=== PATIENT | female | born 1950 | race Caucasian/White ===

== ENCOUNTER 2017-10-07 12:30 | Observation (INO) | payer OTHER, MEDICAID ==
[2017-10-07] VITALS (11 sets, daily range): BP systolic 125–194; BP diastolic 57–86; PULSE 91–99; RESP 16–22; TEMP 97.4–97.9; O2SAT 96–100
[~2017-10-07] VITALS: Ht 149.9 cm; Wt 90.2 kg
[~2017-10-07 12:30] MED LIST: ARIP1TAB12; ATOR40TA49 PO; COLE625 PO; EFFE150C PO; LAMI200T PO; LISI-363 PO; LOPE2 PO; LOPE2TAB3 PO; METF500 PO; PROT40TA PO; TRIA.1%T TOP
[2017-10-07] MEDS ORDERED: SODIUM CHLOR 0.9% 1000 ML INJ 1,000 ML IV ONE (12:33)
[2017-10-07 12:59] LABS: AUTOMATED NEUTROPHIL # 5.6 TH/MM3 (1.8-7.7); BASOPHIL % 0.4 % (0.0-2.0); EOSINOPHIL # 0.2 TH/MM3 (0-0.4); EOSINOPHIL % 3.1 % (0.0-4.0); HEMATOCRIT 34.9 % (35.0-46.0); HEMOGLOBIN 11.6 GM/DL (11.6-15.3); LYMPH % 12.4 % (9.0-44.0); LYMPHOCYTE # 0.9 TH/MM3 (1.0-4.8); MEAN CORPUSCULAR HEMOGLOBIN 29.4 PG (27.0-34.0); MEAN CORPUSCULAR HGB CONC 33.3 % (32.0-36.0); MEAN PLATELET VOLUME 7.4 FL (7.0-11.0); MONO % 6.4 % (0.0-8.0); MONOCYTE # 0.5 TH/MM3 (0-0.9); NEUT % 77.7 % (16.0-70.0); PLATELET COUNT 316 TH/MM3 (150-450); RED BLOOD COUNT 3.97 MIL/MM3 (4.00-5.30); WHITE BLOOD COUNT 7.2 TH/MM3 (4.0-11.0)
--- NOTE | 2017-10-07 12:59 | RADRPT ---
EXAM DATE: 10/07/2017 12:43 PM EDT AGE/SEX: 67 years / Female INDICATIONS: Stroke alert. Cephalgia. Resolved slurred speech and right upper extremity weakness. CLINICAL DATA: This is the patient's initial encounter. Patient reports that signs and symptoms have been present for 1 day and indicates a pain score of 0/10. MEDICAL/SURGICAL HISTORY: Non-responsive. Non-responsive. RADIATION DOSE: 61.45 CTDI (mGy) [place] [facility] [place]. . Report was called by [ Dr. Gomez to Dr. Sommer at 12:56 PM] TECHNIQUE: CT of the head without contrast. Using automated exposure control and adjustment of the mA and/or kV according to patient size, radiation dose was kept as low as reasonably achievable to ob tain optimal diagnostic quality images. FINDINGS: Cerebrum: The ventricles are normal for age. No evidence of midline shift, mass lesion, hemorrhage or acute infarction. No extraaxial fluid collections are seen. Posterior Fossa: The cerebellum and brainstem are intact. The 4th ventricle is midline. The cerebe llopontine angle is unremarkable. Extracranial: The visualized portion of the orbits is intact. Skull: The calvaria is intact. No evidence of skull fracture. CONCLUSION: 1. Unremarkable and stable CT scan of the brain compared to 2016. 2. No focal or acute intracranial hemorrhage. Electronically signed by: Heonk Gomez MD 10/07/2017 12:58 PM EDT
[2017-10-07] MEDS ORDERED: METOCLOPRAMIDE HCL 10 MG/2 ML VIAL IV PUSH ONE ×2 (13:00→16:30)
--- NOTE | 2017-10-07 13:02 | PD ---
[facility] Chief Complaint: Headache Time Seen by Provider: 12:33 Travel History International Travel<30 days: No Contact w/Intl Traveler<30days: No Traveled to known affect area: No History of Present Illness HPI Patient is a 67-year-old female who has history of hypertension, presents the emergency room for evaluation of possible CVA. As per EMS, patient was at the [facility] today, reports that all of a sudden, she had epigastric pain and felt nauseous. Reports that she became diaphoretic and then began to develop a headache. When EMS arrived on scene, patient was unable to provide in [facility], reports concerns that she may have been slurring her speech and had left -sided weakness. Upon presentation to the emergency room, patient complains of a headache with abdominal pain. Patient is alert and oriented 3, she does not have any speech deficits, she has no weakness, she has no neurological abnormalities. Patient is extremely anxious at this time, she is upset as she is having epigastric pain with nausea. Patient reports that she feels "sick to my stomach." Patient denies having any chest pain or shortness of breath at this time. PFSH Past Medical History Bipolar Disorder: Yes Cardiovascular Problems: Yes (HTN) Diabetes: Yes Diminished Hearing: No Psychiatric: Yes (bipolar) ?: Not Past Surgical History Narrative Surgical Patient cannot remember if she has had any surgeries in the past. Social History Alcohol Use: No Tobacco Use: No Substance Use: No Allergies-Medications (Allergen,Severity, Reaction): Coded Allergies: moexipril (Unverified Allergy, Unknown, 10/07/17) Reported Meds & Prescriptions Reported Meds & Active Scripts Active Reported Aricept (Donepezil) 23 Mg Tab 23 Mg PO HS Do not split, crushed or chewed. Effexor XR 24 HR (Venlafaxine HCl) 150 Mg Cap 300 Mg PO DAILY Loperamide (Loperamide HCl) 2 Mg Cap 2 Mg PO DIRECTED PRN One capsule after each loose stool. Not to exceed 8 capsules per day. Lisinopril 20 Mg Tab 20 Mg PO DAILY Lamictal (Lamotrigine) 200 Mg Tab 200 Mg PO BID Atorvastatin (Atorvastatin Calcium) 40 Mg Tab 40 Mg PO HS Abilify (Aripiprazole) 10 Mg Tab 10 Mg PO DAILY Review of Systems General / Constitutional: No: Fever Eyes: No: Visual changes HENT: Positive: Headaches Cardiovascular: No: Chest Pain or Discomfort Respiratory: No: Shortness of Breath Gastrointestinal: Positive: Nausea, Vomiting, Abdominal Pain, No: Diarrhea, Constipation Genitourinary: No: Dysuria Musculoskeletal: No: Pain Skin: No Rash Neurologic: No: Weakness Psychiatric: No: Depression Endocrine: No: Polydipsia Hematologic/Lymphatic: No: Easy Bruising Physical Exam Narrative GENERAL: Moderate distress SKIN: Focused skin assessment warm/dry. HEAD: Atraumatic. Normocephalic. EYES: Pupils equal and round. No scleral icterus. No injection or drainage. ENT: No nasal bleeding or discharge. Mucous membranes pink and moist. NECK: Trachea midline. No JVD. CARDIOVASCULAR: Regular rate and rhythm. No murmur appreciated. RESPIRATORY: No accessory muscle use. Clear to auscultation. Breath sounds equal bilaterally. GASTROINTESTINAL: Abdomen soft, patient with tenderness in the epigastrium, no rebound or guarding on exam, nondistended. Hepatic and splenic margins not palpable. MUSCULOSKELETAL: No obvious deformities. No clubbing. No cyanosis. No edema. NEUROLOGICAL: Awake and alert. No obvious cranial nerve deficits. Motor grossly within normal limits. Normal speech. NIH scale is 2 PSYCHIATRIC: Anxious mood and affect; insight and judgment normal. Data Data Last Documented VS Vital Signs Date Time Temp Pulse Resp B/P (MAP) Pulse Ox O2 Delivery O2 Flow Rate FiO2 10/07/17 14:19 91 20 153/71 (98) 99 10/07/17 13:13 97.9 Nasal Cannula 2.[address] Brain W/O Iv Contrast(Rout) (10/07/17 ) Neuro Checks Q2HX12,Q4H (10/07/17 12:33) Nursing Bedside Swallow Assess .ONCE (10/07/17 12:33) Activity Bed Rest (10/07/17 12:33) Prothrombin Time / Inr (Pt) (10/07/17 12:33) Act Partial Throm Time (Ptt) (10/07/17 12:33) Complete Blood Count With Diff (10/07/17 12:33) Basic Metabolic Panel (Bmp) (10/07/17 12:33) Fibrinogen (10/07/17 12:33) Creatine Kinase (Cpk) (10/07/17 12:33) Troponin I (10/07/17 12:33) Ua Includes Microscopic (10/07/17 12:33) Type And Screen (10/07/17 12:33) Chest, Single Ap (10/07/17 ) Electrocardiogram (10/07/17 ) Consult Neurology (10/07/17 12:33) Sodium Chlor 0.9% 1000 Ml Inj (Ns 1000 M (10/07/17 12:33) Blood Glucose (10/07/17 12:33) Ecg Monitoring (10/07/17 12:33) Iv Access Insert/Monitor (10/07/17 12:33) NPO (10/07/17 12:33) Oximetry (10/07/17 12:33) Resp Oxygen Nc Stroke (10/07/17 ) (Hub Use Only)Inp Phy Cons/Ref (10/07/17 ) Lactic Acid (10/07/17 12:56) Metoclopramide Inj (Reglan Inj) (10/07/17 13:00) Lipase (10/07/17 12:50) Morphine Inj (Morphine Inj) (10/07/17 13:30) Lorazepam Inj (Ativan Inj) (10/07/17 13:30) Ondansetron Odt (Zofran Odt) (10/07/17 13:30) Cta Thor Abd Aorta W Iv C W3d (10/07/17 13:34) Csf Cell Count + Differential (10/07/17 14:37) Glucose, Csf (10/07/17 14:37) Total Protein, Csf (10/07/17 14:37) Csf Culture And Gram Stain (10/07/17 14:38) Labs Laboratory Tests Test 10/07/17 12:50 10/07/17 13:00 White Blood Count 7.2 TH/MM3 Red Blood Count 3.97 MIL/MM3 Hemoglobin 11.6 GM/DL Hematocrit 34.9 % Mean Corpuscular Volume 88.0 FL Mean Corpuscular Hemoglobin 29.4 PG Mean Corpuscular Hemoglobin Concent 33.3 % Red Cell Distribution Width 14.0 % Platelet Count 316 TH/MM3 Mean Platelet Volume 7.4 FL Neutrophils (%) (Auto) 77.7 % Lymphocytes (%) (Auto) 12.4 % Monocytes (%) (Auto) 6.4 % Eosinophils (%) (Auto) 3.1 % Basophils (%) (Auto) 0.4 % Neutrophils # (Auto) 5.6 TH/MM3 Lymphocytes # (Auto) 0.9 TH/MM3 Monocytes # (Auto) 0.5 TH/MM3 Eosinophils # (Auto) 0.2 TH/MM3 Basophils # (Auto) 0.0 TH/MM3 CBC Comment DIFF FINAL Differential Comment Prothrombin Time 10.0 SEC Prothromb Time International Ratio 1.0 RATIO Activated Partial Thromboplast Time 23.7 SEC Fibrinogen 383 mg/dL Blood Urea Nitrogen 14 MG/DL Creatinine 0.77 MG/DL Random Glucose 125 MG/DL Calcium Level 9.1 MG/DL Sodium Level 134 MEQ/L Potassium Level 3.6 MEQ/L Chloride Level 99 MEQ/L Carbon Dioxide Level 26.2 MEQ/L Anion Gap 9 MEQ/L Estimat Glomerular Filtration Rate 75 ML/MIN Total Creatine Kinase 152 U/L Troponin I LESS THAN 0.02 NG/ML Lipase 98 U/L Lactic Acid Level 1.9 mmol/L MDM Medical Decision Making Medical Screen Exam Complete: Yes Emergency Medical Condition: Yes Medical Record Reviewed: Yes Interpretation(s) EKG at 1249: NSR at 93bpm, qt/qtc: 363/414, no acute st or t wave changes Vital Signs Date Time Temp Pulse Resp B/P (MAP) Pulse Ox O2 Delivery O2 Flow Rate FiO2 10/07/17 12:43 16 99 Room Air 10/07/17 12:40 16 99 Room Air 10/07/17 12:35 94 16 194/67 (109) 99 Differential Diagnosis CVA, TIA, ACS, arrhythmia, electrolyte abnormality, pancreatitis, cholecystitis , small bowel obstruction, SMA occlusion, SAH Narrative Course Patient is a 67 year old female who initially presented to the emergency room under a stroke alert by EMS. Patient currently with no neuro deficits, NIH scale is 0. Patient symptoms are nausea, vomiting, abdominal pain and headache. Since stroke alert was called by EMS [facility], I did review case with Dr. Salgado at 12:48 PM today. Discussed with her that I do not believe patient is having a stroke. Stroke alert will be discontinued During the course of the patients emergency department visit, the patients history, examination, and differential diagnosis were reviewed with the patient. The patient was placed on a personnel monitor with oximetry and frequent blood pressure monitoring. The patient had an IV access obtained and blood work sent for analysis. The patient was initially provided IVF, IV reglan The patients laboratory studies were reviewed and remarkable for: Initial BS 131 Radiology studies were reviewed and remarkable for CT of the head with no acute bleeding Patient reevaluated, patient reports that she still has a severe headache - patient now reports that this is the worst headache of her life, she does have resolution of chest pain and nausea, discussed need for LP to rule out SAH, patient gives verbal as well as written consent patient signed out to care of Dr. Bran at change of shift Critical Care Narrative Aggregate critical care time was 45 minutes. Time to perform other separately billable procedures was not included in the critical care time. My time did not include minutes spent treating any other patients simultaneously or on activities that did not directly contribute to the patient's treatment. The services I provided to this patient were to treat and/or prevent clinically significant deterioration that could result in: , decompensation, deterioration I provided critical care services requiring my management, as noted below: Chart data review, documentation time, medication orders and management, vital sign assessments/reviewing monitor data, ordering and reviewing lab tests, ordering and interpreting/reviewing x-rays and diagnostic studies, care of the patient and discussion of the patient with the admitting physicians. Procedures Procedure Narrative LUMBAR PUNCTURE: The patient was placed in the left lateral decubitus position. The lumbar area of the back was prepped with Betadine and sterilely draped. The L3 -- L4 interspace was infiltrated with 1% lidocaine plain. Number 20 gauge LP needle was placed in the interspace. Opening pressure deferred. Number 5 milliliters of clear CSF were obtained. Patient tolerated procedure well. Arlen Sommer DO October 07, 2017 13:02
[2017-10-07 13:08] LABS: CHLORIDE 99 MEQ/L (98-107); SODIUM (NA) 134 MEQ/L (136-145)
[2017-10-07 13:11] LABS: BICARBONATE 26.2 MEQ/L (21.0-32.0); BLOOD UREA NITROGEN 14 MG/DL (7-18); CALCIUM 9.1 MG/DL (8.5-10.1); GLUCOSE,RANDOM 125 MG/DL (74-106)
[2017-10-07 13:15] LABS: CREATININE 0.77 MG/DL (0.50-1.00); GLOMERULAR FILTRATION RATE 75 ML/MIN (>89)
--- NOTE | 2017-10-07 13:17 | RADRPT ---
EXAM DATE: 10/07/2017 1:13 PM EDT AGE/SEX: 67 years / Female INDICATIONS: Stroke Alert CLINICAL DATA: This is the patient's initial encounter. Patient reports that signs and symptoms have been present for 1 day and indicates a pain score of Nonresponsive. MEDICAL/SURGICAL HISTORY: Hypertension. None. COMPAR[place]: [facility] [place]. . FINDINGS: A single AP view of the chest demonstrates the lungs to be symmetrically hypoinflated. Mild interstit ial prominence is probably due to the low lung volumes. No confluent infiltrate or effusion. Mild pro minence of the right hilar structures are stable from the prior and likely represent the normal centr al vasculature. Osseous structures are intact. CONCLUSION: 1. Hypoinflation with mild interstitial prominence probably due to the low lung volumes. 2. No acute infiltrate. Electronically signed by: Kee Chandler MD 10/07/2017 1:16 PM EDT
[2017-10-07 13:19] LABS: TROPONIN I LESS THAN 0.02 NG/ML (0.02-0.05)
[2017-10-07] MEDS ORDERED: LOPE2CAP PO (13:20)
[2017-10-07] MEDS ORDERED: LAMI200T PO (13:20)
[2017-10-07] MEDS ORDERED: LISI-515 PO (13:20)
[2017-10-07] MEDS ORDERED: ATOR40TA16 PO (13:20)
[2017-10-07] MEDS ORDERED: EFFE150C PO (13:20)
[2017-10-07] MEDS ORDERED: ABIL10TA8 PO (13:20)
[2017-10-07] MEDS ORDERED: ARIC23TA PO (13:24)
[2017-10-07] MEDS ORDERED: ONDANSETRON ODT 4 MG TAB PO ONE (13:30)
[2017-10-07] MEDS ORDERED: LORazepam 2 MG/ML VIAL IV PUSH ONE (13:30)
[2017-10-07] MEDS ORDERED: MORPHINE SULFATE 4 MG/ML INJ IV PUSH ONE (13:30)
[2017-10-07] MEDS ORDERED: ACETAMINOPHEN 1000 MG/100 ML 100 ML IV ONE (15:15)
[2017-10-07 15:43] LABS: SUPERNATE COLOR TUBE #1 CLEAR (CLEAR); VOLUME TUBE # 1 1.5 ML
[2017-10-07 15:44] LABS: CSF LYMPHOCYTES 0 %; CSF NEUTROPHILS 0 %; RBC TUBE #4 1 /MM3; WBC TUBE #4 0 /MM3 (0-10)
[2017-10-07] MEDS ORDERED: IOHEXOL 350 MG/ML 10 ML VIAL (for RAD DIAG) IVCONTRAST ONE (16:04)
--- NOTE | 2017-10-07 16:20 | MB ---
cc: Vanessa Magana MD DATE: 10/07/2017 DATE OF : 1950 AGE: [age] years old. REASON FOR CONSULTATION: Possible stroke. HISTORY OF PRESENT ILLNESS: The patient has a history of hypertension, was at the [facility] [place] with her latter day group, started to feel really hot, had severe epigastric pain, nauseated, headache, and had slurring of speech, maybe left-sided weakness. Upon presentation to the ER, she complained of headache and abdominal pain. The ED physician did a spinal tap and she will be pending a CT of the abdominal aorta. CT of the brain is negative. The patient does not have any weakness. Her speech is normal. She still has mild nausea, but states she feels better. PAST MEDICAL HISTORY: She has a history of bipolar disorder, hypertension, diabetes. SOCIAL HISTORY: Does not smoke, drink or use drugs. ALLERGIES: MOEXIPRIL. HOME MEDICATIONS: 1. Aricept. There is some mild dementia also noted. 2. Effexor. 3. Loperamide. 4. Lisinopril. 5. Lamictal. 6. Atorvastatin. 7. Abilify. PHYSICAL EXAMINATION: VITAL SIGNS: Temperature is 97.9, pulse 91, respiratory rate ___, blood pressure 153/71. NECK: Her neck is supple. HEART: Regular. HEENT: Her pupils are reactive. Visual resee full. Face symmetrical. Tongue midline. NEUROLOGICAL EXAMINATION: Motor-maloney I do not see any drift or leg lag. Toes are downgoing. DTRs are 1+. Cerebellar is normal. Sensory is normal. Gait is withheld at this time. CT of the brain was unremarkable. LABORATORY DATA: Reviewed. Chemistries: Glucose 125. Her spinal tap results are still pending for cell count, glucose, protein, culture. IMAGING STUDIES: CT of the thorax and abdomen is pending. IMPRESSION AND PLAN: 1. Headache, questionable etiology. I do not believe this is a stroke or transient ischemic accident . However, I will get an MRI of the brain to rule out stroke or other findings in the MRA, [place] and carotids. Also, if workup is negative, certainly a baby aspirin can be initiated. Hypertension needs to be controlled properly. Sequential compression device, subcutaneous heparin for deep venous thrombosis prevention. Check lipid panel, 2-D echocardiogram and physical therapy evaluation and discharge planning. MD ENRIQUETA Voss/VIDYA , 03:30 PM , 04:19 PM
--- NOTE | 2017-10-07 16:33 | RADRPT ---
EXAM DATE: 10/07/2017 4:23 PM EDT AGE/SEX: 67 years / Female INDICATIONS: Epigastric pain and nausea. Evaluate for aortic dissection. CLINICAL DATA: This is the patient's initial encounter. Patient reports that signs and symptoms have been present for 1 day and indicates a pain score of 7/10. MEDICAL/SURGICAL HISTORY: Hypertension. Diabetes mellitus type II. None. RADIATION DOSE: 22.04 CTDI (mGy) COMPARISON: No prior [facility] exams available for comparison. TECHNIQUE: Volumetric scanning was performed using a multi-row detector CT scanner during bolus infu juan of 100 ml Omnipaque 350 (iohexol) nonionic water-soluble contrast as a single exam dose. The d león was post processed with a variety of visualization algorithms including full volume maximum inten sity projection, multi-planar sliding thin slab reformation, curved planar reformation, and surface r endering techniques. Using automated exposure control and adjustment of the mA and/or kV according t o patient size, radiation dose was kept as low as reasonably achievable to obtain optimal diagnostic quality images. FINDINGS: LUNGS: There is no consolidation or pneumothorax. No concerning pulmonary nodule is visualized. No pleural fluid is present. MEDIASTINUM: No abnormally enlarged lymph nodes by CT criteria. No axillary or hilar abnormalities a re identified. The very central pulmonary arteries are patent. ABDOMEN: Mild diffusely decreased hepatic density without focal mass or intrahepatic ductal dilatatio n. The spleen is free of focal defects. The gallbladder and pancreas demonstrate no abnormality. The adrenal glands are normal. The kidneys demonstrate no evidence of solid renal mass or hydronephrosis. No free fluid or abdominal masses are identified. No para-aortic adenopathy is seen. Minimal sigmoid diverticulosis. Bowel otherwise appears unremarkable. No dilated loops of bowel. PELVIS: No evidence of free fluid or pelvic mass. No abnormally enlarged inguinal or retroperitoneal lymph nodes are present. The bladder is unremarkable. Degenerative spondylosis of the lumbar spine w ithout focal lytic or blastic bony lesions. THORACIC AORTA: Evaluation of the ascending thoracic aorta is somewhat limited due to motion artifact . The thoracic aorta is normal in caliber with normal branching of the great vessels. There is no ev idence of aneurysm or dissection. ABDOMINAL AORTA: The aorta is normal in caliber without aneurysm or dissection. Mild calcified plaqu e in the distal infrarenal aorta. The renal arteries are patent bilaterally. The proximal celiac and superior mesenteric arteries are patent and normal in diameter. PELVIC VESSELS: The internal iliac and external iliac vessels are patent without aneurysm or stenosi s. CONCLUSION: 1. Normal caliber aorta without evidence for aortic dissection or aneurysm as questioned. 2. No definitive acute CT findings to explain patient's abdominal pain. 3. Ancillary findings include hepatic steatosis, mild sigmoid diverticulosis and degenerative spondy losis of the lumbar spine. Electronically signed by: Jarret Lopez MD 10/07/2017 4:31 PM EDT
--- NOTE | 2017-10-07 16:53 | PD ---
Data Data Last Documented VS Vital Signs Date Time Temp Pulse Resp B/P (MAP) Pulse Ox O2 Delivery O2 Flow Rate FiO2 10/07/17 15:40 96 16 125/57 (79) 100 Nasal Cannula 2.00 10/07/17 13:[address] Brain W/O Iv Contrast(Rout) (10/07/17 ) Neuro Checks Q2HX12,Q4H (10/07/17 12:33) Nursing Bedside Swallow Assess .ONCE (10/07/17 12:33) Activity Bed Rest (10/07/17 12:33) Prothrombin Time / Inr (Pt) (10/07/17 12:33) Act Partial Throm Time (Ptt) (10/07/17 12:33) Complete Blood Count With Diff (10/07/17 12:33) Basic Metabolic Panel (Bmp) (10/07/17 12:33) Fibrinogen (10/07/17 12:33) Creatine Kinase (Cpk) (10/07/17 12:33) Troponin I (10/07/17 12:33) Ua Includes Microscopic (10/07/17 12:33) Type And Screen (10/07/17 12:33) Chest, Single Ap (10/07/17 ) Electrocardiogram (10/07/17 ) Consult Neurology (10/07/17 12:33) Sodium Chlor 0.9% 1000 Ml Inj (Ns 1000 M (10/07/17 12:33) Blood Glucose (10/07/17 12:33) Ecg Monitoring (10/07/17 12:33) Iv Access Insert/Monitor (10/07/17 12:33) NPO (10/07/17 12:33) Oximetry (10/07/17 12:33) Resp Oxygen Nc Stroke (10/07/17 ) (Hub Use Only)Inp Phy Cons/Ref (10/07/17 ) Lactic Acid (10/07/17 12:56) Metoclopramide Inj (Reglan Inj) (10/07/17 13:00) Lipase (10/07/17 12:50) Morphine Inj (Morphine Inj) (10/07/17 13:30) Lorazepam Inj (Ativan Inj) (10/07/17 13:30) Ondansetron Odt (Zofran Odt) (10/07/17 13:30) Cta Thor Abd Aorta W Iv C W3d (10/07/17 13:34) Csf Cell Count + Differential (10/07/17 14:37) Glucose, Csf (10/07/17 14:37) Total Protein, Csf (10/07/17 14:37) Csf Culture And Gram Stain (10/07/17 14:38) Acetaminophen 1000 Mg/100 Ml (Ofirmev 10 (10/07/17 15:15) Mri Brain W/O Contrast (10/07/17 ) Mra Brain W/O Contrast (Cow) (10/07/17 ) Echo 2d Comp With Doppler (10/07/17 ) Iohexol 350 Inj (Omnipaque 350 Inj) (10/07/17 16:04) Mra Carotids W Contrast (10/07/17 ) Metoclopramide Inj (Reglan Inj) (10/07/17 16:30) Labs Laboratory Tests Test 10/07/17 12:50 10/07/17 13:00 10/07/17 15:00 White Blood Count 7.2 TH/MM3 Red Blood Count 3.97 MIL/MM3 Hemoglobin 11.6 GM/DL Hematocrit 34.9 % Mean Corpuscular Volume 88.0 FL Mean Corpuscular Hemoglobin 29.4 PG Mean Corpuscular Hemoglobin Concent 33.3 % Red Cell Distribution Width 14.0 % Platelet Count 316 TH/MM3 Mean Platelet Volume 7.4 FL Neutrophils (%) (Auto) 77.7 % Lymphocytes (%) (Auto) 12.4 % Monocytes (%) (Auto) 6.4 % Eosinophils (%) (Auto) 3.1 % Basophils (%) (Auto) 0.4 % Neutrophils # (Auto) 5.6 TH/MM3 Lymphocytes # (Auto) 0.9 TH/MM3 Monocytes # (Auto) 0.5 TH/MM3 Eosinophils # (Auto) 0.2 TH/MM3 Basophils # (Auto) 0.0 TH/MM3 CBC Comment DIFF FINAL Differential Comment Prothrombin Time 10.0 SEC Prothromb Time International Ratio 1.0 RATIO Activated Partial Thromboplast Time 23.7 SEC Fibrinogen 383 mg/dL Blood Urea Nitrogen 14 MG/DL Creatinine 0.77 MG/DL Random Glucose 125 MG/DL Calcium Level 9.1 MG/DL Sodium Level 134 MEQ/L Potassium Level 3.6 MEQ/L Chloride Level 99 MEQ/L Carbon Dioxide Level 26.2 MEQ/L Anion Gap 9 MEQ/L Estimat Glomerular Filtration Rate 75 ML/MIN Total Creatine Kinase 152 U/L Troponin I LESS THAN 0.02 NG/ML Lipase 98 U/L Lactic Acid Level 1.9 mmol/L CSF Volume (Tube 1) 1.5 ML CSF Supernatant Color (tube 1) CLEAR CSF Gross Blood (Tube 1) 0 CSF Volume (Tube 2) 1.0 ML CSF Supernatant Color (tube 2) CLEAR CSF Gross Blood (Tube 2) 0 CSF Volume (Tube 3) 1.5 ML CSF Supernatant Color (tube 3) CLEAR CSF Gross Blood (Tube 3) 0 CSF Volume (Tube 4) 2.0 ML CSF Supernatant Color (tube 4) CLEAR CSF Gross Blood (Tube 4) 0 CSF WBC (Tube 4) 0 /MM3 CSF RBC (Tube 4) 1 /MM3 CSF Neutrophils 0 % CSF Lymphocytes 0 % MDM Supervised Visit with NATALIE: No Narrative Course The patient was initially evaluated by the previous provider and signed out to me the beginning of my shift pending LP results, CT aorta, and admission. See her note for further details. Briefly this is a 67-year-old female with history of hypertension, hyperlipidemia who was brought in by ambulance as a stroke alert. The patient was well until this [place] when she began to experience diaphoresis, nausea, slurred speech, and left arm weakness. According to the previous provider there are no neurologic deficits upon patient arrival. Her EKG shows no signs of ischemia. CBC is unremarkable. BMP is unremarkable. Cardiac enzymes are negative. LP shows clear supernatant , no xanthochromia, no gross blood, no signs of infection. CT head shows no acute focal or intracranial abnormalities. Unremarkable CT head when compared to 2016. CT aorta shows normal caliber aorta without evidence for aortic dissection or aneurysm. No definitive acute CT findings to explain the patient's abdominal pain. There is hepatic steatosis, mild sigmoid diverticulosis and degenerative spondylosis of the lumbar spine. Patient and the patient's family were made aware of all findings. Patient still feels nauseous. She was initially provided Zofran will be given Reglan. I will also give her a full aspirin for her initial neurologic symptoms that have since resolved with questionable TIA. Patient was already evaluated by neurologist Dr Magana who has ordered MRA brain, MRI brain, MRA [place]. Case discussed with hospitalist Dr. Jacques who will admit the patient to her service. Diagnosis Primary Impression: Headache Qualified Codes: R51 - Headache Additional Impressions: TIA (transient ischemic attack) Qualified Codes: G45.9 - Transient cerebral ischemic attack, unspecified Chest pain Qualified Codes: R07.9 - Chest pain, unspecified Admitting Information Admitting Physician Requests: Luis Alberto Vazquez MD October 07, 2017 16:53
[2017-10-07] MEDS ORDERED: GADODIAMIDE PF 287 MG/ML 20 ML VIAL (for RAD MRI) IVCONTRAST ONE (16:55)
[2017-10-07] MEDS ORDERED: DEXTROSE 50% IN WATER 50 ML VIAL(D50) IV PUSH PRN (17:15)
[2017-10-07] MEDS ORDERED: GLUCAGON 1 MG/ML VIAL OTHER PRN (17:15)
[2017-10-07] MEDS ORDERED: SODIUM CHLORIDE 0.9% FLUSH 10 ML FLUSH IV FLUSH PRN (17:15)
[2017-10-07 17:52] LABS: TOTAL PROTEIN,CSF 41.7 MG/DL (15.0-45.0)
--- NOTE | 2017-10-07 17:53 | RADRPT ---
EXAM DATE: 10/07/2017 5:47 PM EDT AGE/SEX: 67 years / Female INDICATIONS: CVA. Cephalgia and nausea. CLINICAL DATA: This is the patient's initial encounter. Patient reports that signs and symptoms have been present for 1 day and indicates a pain score of 2/10. MEDICAL/SURGICAL HISTORY: Hypertension. Appendectomy. COMPARISON: No prior [facility] exams available for comparison. TECHNIQUE: 3D [id number] MRA was performed. Source images, multiplanar STS MIP, and 3D volum e MIP reconstructions were reviewed. FINDINGS: There is excellent visualization of the major intracranial arteries out to the second-o rder branch vessels. There is no evidence for aneurysm, vessel truncation or stenosis, and no eviden ce for vascular malformation. CONCLUSION: 1. Unremarkable MRA of the brain. Electronically signed by: Henok Gomez MD 10/07/2017 5:52 PM EDT
[2017-10-07] MEDS ORDERED: ASPIRIN EC 325 MG TABEC PO ONE (18:00)
--- NOTE | 2017-10-07 18:03 | RADRPT ---
EXAM DATE: 10/07/2017 6:00 PM EDT AGE/SEX: 67 years / Female INDICATIONS: CVA. Cephalgia and nausea. CLINICAL DATA: This is the patient's initial encounter. Patient reports that signs and symptoms have been present for 1 day and indicates a pain score of 2/10. MEDICAL/SURGICAL HISTORY: Hypertension. Appendectomy. COMPARISON: No prior [facility] exams available for comparison. TECHNIQUE: Multiplanar, multisequence examination of the brain was performed without contrast. FINDINGS: Cerebrum: The ventricles are normal for age. No evidence of midline shift, mass lesion, hemorrhage or acute infarction. No extraaxial fluid collections are seen. The pituitary gland and suprasellar cistern are normal in configuration. White Matter: Minimal periventricular white matter T2 prolongation. Posterior Fossa: The cerebellum and brainstem are intact. The 4th ventricle is midline. The cerebel lopontine angle is unremarkable. The cerebellar tonsils are normal in position. Diffusion Imaging: No focal areas of restricted diffusion are seen. No evidence of acute infarction . Extracranial: The visualized portions of the orbits and paranasal sinuses are unremarkable. CONCLUSION: 1. Minimal periventricular ischemic white matter demyelination. 2. No acute abnormality. Specifically, no evidence for acute infarction, mass or hemorrhage. Electronically signed by: Jarret Lopez MD 10/07/2017 6:02 PM EDT
--- NOTE | 2017-10-07 18:08 | RADRPT ---
EXAM DATE: 10/07/2017 5:59 PM EDT AGE/SEX: 67 years / Female INDICATIONS: Stenosis. CLINICAL DATA: This is the patient's initial encounter. Patient reports that signs and symptoms have been present for 1 day and indicates a pain score of 0/10. MEDICAL/SURGICAL HISTORY: Hypertension. Appendectomy. COMPARISON: No prior [facility] exams available for comparison. TECHNIQUE: 20 ml Omniscan (gadodiamide) contrast infused MRA (single exam dose) of the extracranial circulation was performed using a neurovascular coil. Postprocessing was performed, including rotat ing sub-volume maximum intensity projections of each carotid artery, rotating full-volume maximum int ensity projections of both carotid arteries, sagittal and coronal sliding thin-slab reformations of e ach carotid artery, and left oblique sliding thin-slab reformation through the aortic arch to include the origin of the arch branch vessels. FINDINGS: Aortic Arch: There is a three-vessel origin of the great vessels from the aorta. No evidence of ost ial narrowing Right Carotid: The common carotid artery is intact. The carotid bulb has a normal configuration wit hout ulceration or narrowing. Minimal eccentric plaque in the origin of the internal carotid artery w ith resultant less than 20% stenosis. Internal carotid artery is otherwise patent to the skull base.. The external carotid artery is intact. Left Carotid: The common carotid artery is intact. The carotid bulb has a normal configuration with out ulceration or narrowing. The internal carotid artery lumen is smooth without stenosis. The exte rnal carotid artery is intact. Vertebrals: The vertebral arteries have a symmetric diameter. No stenotic lesions are seen. CONCLUSION: 1. Minimal eccentric plaque in the right internal carotid origin with resultant less than 20% stenos is. 2. No significant flow-limiting stenosis in the left carotid arteries. 3. Patent bilateral vertebral arteries. Percent stenosis is calculated using the diameter of the stenotic region over the diameter of the nor mal distal internal carotid artery Electronically signed by: Jarret Lopez MD 10/07/2017 6:07 [email or web address]
[2017-10-07] MEDS: INSULIN ASPART SUPPLEMENTAL SCALE SQ SCH (21:00)
[2017-10-07] MEDS: SODIUM CHLORIDE 0.9% FLUSH 10 ML FLUSH IV FLUSH SCH (21:00)
[2017-10-08] VITALS: BP 122/60; PULSE 79; RESP 22; TEMP 97.5; O2SAT 99
[2017-10-08 04:00] VITALS: BP 130/60; PULSE 81; RESP 22; TEMP 96.5; O2SAT 99
[2017-10-08 08:00] VITALS: BP 138/76; PULSE 80; RESP 18; TEMP 98; O2SAT 93
[2017-10-08] MEDS: INSULIN ASPART SUPPLEMENTAL SCALE SQ SCH (08:00)
[2017-10-08] MEDS: SODIUM CHLORIDE 0.9% FLUSH 10 ML FLUSH IV FLUSH SCH (08:45)
[2017-10-08 09:17] LABS: CHOLESTEROL/ HDL RATIO 2.27 RATIO; HDL CHOLESTEROL 50.1 MG/DL (40.0-60.0)
[2017-10-08] MEDS ORDERED: NAPROXEN SODIUM 550 MG TAB PO PRN (10:30)
--- NOTE | 2017-10-08 11:30 | HHI.HP ---
[facility] Unknown Admission Diagnosis Headache, TIA, chest pain Diagnoses: (1) TIA (transient ischemic attack) (2) Headache (3) Syncope and collapse (4) Nausea & vomiting Chief Complaint: Nausea, weakness, headache Travel History International Travel<30 Days: No Contact w/Intl Traveler <30 Da: No Traveled to Known Affected Are: No History of Present Illness 67-year-old female with a history of diabetes type 2, dementia was brought yesterday to the ED for evaluation of severe epigastric pain, nausea and headache as well as slurred speech. Patient states she was at [facility] [place] with her buddhist group when she started feeling hot and nauseated. She states she was noted to have slurring of the speech and possible left-sided weakness which resolved upon arrival in the ED. Patient has had multiple emergency studies performed which were unremarkable. Neurology was consulted and patient will start on baby aspirin. During my exam patient reported an improvement of nausea and abdominal pain. She had no slurring speech however continues to complain of headaches. She denies any shortness of breath or chest pain. There was no GI bleed. Patient was looking for discharge home. Review of Systems Except as stated in HPI: all other systems reviewed are Neg Past Family Social History Past Medical History Diabetes Bipolar disorder Prior history of tobacco abusequit in 2008 Past Surgical History Hernia repair Appendectomy Reported Medications Patient's medications list on EMR reviewed Allergies: Coded Allergies: moexipril (Unverified Allergy, Unknown, 10/07/17) Family History Positive for diabetes, coronary artery disease Social History Patient denies tobacco, alcohol or illicit drug intake Physical Exam Vital Signs Vital Signs Date Time Temp Pulse Resp B/P (MAP) Pulse Ox O2 Delivery O2 Flow Rate FiO2 10/08/17 08:00 98.0 80 18 138/76 (96) 93 10/08/17 04:00 96.5 81 22 130/60 (83) 99 10/08/17 00:00 97.5 79 22 122/60 (80) 99 10/07/17 22:30 99 Nasal Cannula 2.00 10/07/17 20:04 92 5/23/18 18:54 97.4 93 22 141/67 (91) 100 10/07/17 18:47 95 16 151/86 (107) 99 Nasal Cannula 2.00 10/07/17 17:44 99 16 150/69 (96) 99 Nasal Cannula 2.00 10/07/17 15:40 96 16 125/57 (79) 100 Nasal Cannula 2.00 10/07/17 15:28 16 97 Nasal Cannula 2.00 10/07/17 14:19 91 20 153/71 (98) 99 10/07/17 13:13 97.9 93 16 175/68 (103) 100 Nasal Cannula 2.00 10/07/17 12:55 99 Nasal Cannula 2.00 10/07/17 12:43 16 99 Room Air 10/07/17 12:40 16 99 Room Air 10/07/17 12:35 94 16 194/67 (109) 99 10/07/17 12:30 96 Nasal Cannula 2.00 Physical Exam GENERAL: This is a well-nourished, well-developed patient, in no apparent distress. SKIN: No rashes, ecchymoses or lesions. Cool and dry. HEAD: Atraumatic. Normocephalic. No temporal or scalp tenderness. EYES: Pupils equal round and reactive. Extraocular motions intact. No scleral icterus. No injection or drainage. ENT: Nose without bleeding, purulent drainage or septal hematoma. Throat without erythema, tonsillar hypertrophy or exudate. Uvula midline. Airway patent. NECK: Trachea midline. No JVD or lymphadenopathy. Supple, nontender, no meningeal signs. CARDIOVASCULAR: Regular rate and rhythm without murmurs, gallops, or rubs. RESPIRATORY: Clear to auscultation. Breath sounds equal bilaterally. No wheezes , rales, or rhonchi. GASTROINTESTINAL: Abdomen soft, non-tender, nondistended. No hepato-splenomegaly , or palpable masses. No guarding. MUSCULOSKELETAL: Extremities without clubbing, cyanosis, or edema. No joint tenderness, effusion, or edema noted. No calf tenderness. Negative Homans sign bilaterally. NEUROLOGICAL: Awake and alert. Cranial nerves II through XII intact. Motor and sensory grossly within normal limits. Five out of 5 muscle strength in all muscle groups. Normal speech. Laboratory Laboratory Tests Test 10/07/17 12:50 5/23/18 13:00 10/07/17 15:00 10/08/17 06:15 White Blood Count 7.2 Red Blood Count 3.97 Hemoglobin 11.6 Hematocrit 34.9 Mean Corpuscular Volume 88.0 Mean Corpuscular Hemoglobin 29.4 Mean Corpuscular Hemoglobin Concent 33.3 Red Cell Distribution Width 14.0 Platelet Count 316 Mean Platelet Volume 7.4 Neutrophils (%) (Auto) 77.7 Lymphocytes (%) (Auto) 12.4 Monocytes (%) (Auto) 6.4 Eosinophils (%) (Auto) 3.1 Basophils (%) (Auto) 0.4 Neutrophils # (Auto) 5.6 Lymphocytes # (Auto) 0.9 Monocytes # (Auto) 0.5 Eosinophils # (Auto) 0.2 Basophils # (Auto) 0.0 CBC Comment DIFF FINAL Differential Comment Prothrombin Time 10.0 Prothromb Time International Ratio 1.0 Activated Partial Thromboplast Time 23.7 Fibrinogen 383 Blood Urea Nitrogen 14 Creatinine 0.77 Random Glucose 125 Calcium Level 9.1 Sodium Level 134 Potassium Level 3.6 Chloride Level 99 Carbon Dioxide Level 26.2 Anion Gap 9 Estimat Glomerular Filtration Rate 75 Total Creatine Kinase 152 Troponin I LESS THAN 0.02 Lipase 98 Lactic Acid Level 1.9 CSF Volume (Tube 1) 1.5 CSF Supernatant Color (tube 1) CLEAR CSF Gross Blood (Tube 1) 0 CSF Volume (Tube 2) 1.0 CSF Supernatant Color (tube 2) CLEAR CSF Gross Blood (Tube 2) 0 CSF Volume (Tube 3) 1.5 CSF Supernatant Color (tube 3) CLEAR CSF Gross Blood (Tube 3) 0 CSF Volume (Tube 4) 2.0 CSF Supernatant Color (tube 4) CLEAR CSF Gross Blood (Tube 4) 0 CSF WBC (Tube 4) 0 CSF RBC (Tube 4) 1 CSF Neutrophils 0 CSF Lymphocytes 0 CSF Glucose 54 CSF Total Protein 41.7 Triglycerides Level 117 Cholesterol Level 114 LDL Cholesterol 41 HDL Cholesterol 50.1 Cholesterol/HDL Ratio 2.27 Date/Time Source Procedure Growth Status 10/07/17 15:00 Cerebral Spinal Fluid Lumbar Puncture Gram Stain - Final Resulted 10/07/17 15:00 Cerebral Spinal Fluid Lumbar Puncture CSF Culture Pending Resulted Result Diagram: 10/07/17 1250 10/07/17 1250 Imaging Last Impressions Aorta CTA 10/07/17 1334 Signed Impressions: CONCLUSION: 1. Normal caliber aorta without evidence for aortic dissection or aneurysm as questioned. 2. No definitive acute CT findings to explain patient's abdominal pain. 3. Ancillary findings include hepatic steatosis, mild sigmoid diverticulosis a nd degenerative spondylosis of the lumbar spine. Neck Magnetic Resonance Angiography 10/07/17 Signed Impressions: CONCLUSION: 1. Minimal eccentric plaque in the right internal carotid origin with resultan t less than 20% stenosis. 2. No significant flow-limiting stenosis in the left carotid arteries. 3. Patent bilateral vertebral arteries. Percent stenosis is calculated using the diameter of the stenotic region over t he diameter of the normal distal internal carotid artery Head Magnetic Resonance Angiography 10/07/17 Signed Impressions: CONCLUSION: 1. Unremarkable MRA of the brain. Head CT 10/07/17 Signed Impressions: CONCLUSION: 1. Unremarkable and stable CT scan of the brain compared to 2016. 2. No focal or acute intracranial hemorrhage. Chest X-Ray 10/07/17 Signed Impressions: CONCLUSION: 1. Hypoinflation with mild interstitial prominence probably due to the low taylor g volumes. 2. No acute infiltrate. Brain MRI 10/07/17 Signed Impressions: CONCLUSION: 1. Minimal periventricular ischemic white matter demyelination. 2. No acute abnormality. Specifically, no evidence for acute infarction, mass or hemorrhage. Septic Shock Reassessment Septic shock perfusion: reassessment completed Caprini VTE Risk Assessment Caprini VTE Risk Assessment: Mod/High Risk (score >= 2) Caprini Risk Assessment Model Point Value = 1 Point Value = 2 Point Value = 3 Point Value = 5 Age 41-60 Minor surgery BMI > 25 kg/m2 Swollen legs Varicose veins or History of unexplained or recurrent spontaneous Oral contraceptives or hormone replacement Sepsis (< 1 month) Serious lung disease, including pneumonia (< 1 month) Abnormal pulmonary function Acute myocardial infarction Congestive heart failure (< 1 month) History of inflammatory bowel disease Medical patient at bed rest Age 61-74 Arthroscopic surgery Major open surgery (> 45 min) Laparoscopic surgery (> 45 min) Malignancy Confined to bed (> 72 hours) Immobilizing plaster cast Central venous access Age >= 75 History of VTE Family history of VTE Factor V Leiden Prothrombin [id number] Lupus anticoagulant Anticardiolipin antibodies Elevated serum homocysteine Heparin-induced thrombocytopenia Other congenital or acquired thrombophilia Stroke (< 1 month) Elective arthroplasty Hip, pelvis, or leg fracture Acute spinal cord injury (< 1 month) Prophylaxis Regimen Total Risk Factor Score Risk Level Prophylaxis Regimen 0-1 Low Early ambulation 2 Moderate Order ONE of the following: *Sequential Compression Device (SCD) *Heparin 5000 units SQ BID 3-4 Higher Order ONE of the following medications: *Heparin 5000 units SQ TID *Enoxaparin/Lovenox 40 mg SQ daily (WT < 150 kg, CrCl > 30 mL/min) *Enoxaparin/Lovenox 30 mg SQ daily (WT < 150 kg, CrCl > 10-29 mL/min) *Enoxaparin/Lovenox 30 mg SQ BID (WT < 150 kg, CrCl > 30 mL/min) AND/OR *Sequential Compression Device (SCD) 5 or more Highest Order ONE of the following medications: *Heparin 5000 units SQ TID (Preferred with Epidurals) *Enoxaparin/Lovenox 40 mg SQ daily (WT < 150 kg, CrCl > 30 mL/min) *Enoxaparin/Lovenox 30 mg SQ daily (WT < 150 kg, CrCl > 10-29 mL/min) *Enoxaparin/Lovenox 30 mg SQ BID (WT < 150 kg, CrCl > 30 mL/min) AND *Sequential Compression Device (SCD) Assessment and Plan Problem List: (1) TIA (transient ischemic attack) ICD Code: G45.9 - Transient cerebral ischemic attack, unspecified Status: Acute (2) Headache ICD Code: R51 - Headache Status: Acute (3) Nausea & vomiting ICD Code: R11.2 - Nausea with vomiting, unspecified Status: Acute (4) Syncope and collapse ICD Code: R55 - Syncope and collapse Status: Acute Assessment and Plan 67-year-old female with TIA to rule out-however now symptoms resolved Patient has extensive emergent studies including brain MRI noted and reviewed by me without any intracranial abnormality; brain MRA noted and reviewed by me and unremarkable; head CT noted and reviewed by me and negative; neck MRA with finding of 20% stenosis right ICA Appreciate input from neurology and continue with aspirin Recommend outpatient 2D echo Headaches Refer to the above imaging study Treat with Tylenol as needed Nausea without any emesis Aorta CTA with finding of diverticulosis Symptoms resolved Chronic medical conditions including diabetes, hypertension, dementia Continue outpatient medications DVT prophylaxis: Bilateral SCDs Patient is medically stable, therefore she will be discharged home Discharge patient to home Condition on discharge: Improved Regular Diet as tolerated Ad Natalya activity Rx written: see EMR Follow-up with primary care physician in 1week Code Status Full code Discussed Condition With Patient Problem Qualifiers (1) TIA (transient ischemic attack): Qualified Codes: G45.9 - Transient cerebral ischemic attack, unspecified (2) Headache: Qualified Codes: R51 - Headache Adrián Fernandez MD October 08, 2017 11:30
[2017-10-08] MEDS ORDERED: ASPI81TA23 PO (11:39)
[2017-10-08 12:00] VITALS: BP 133/68; PULSE 78; RESP 19; TEMP 97.1; O2SAT 94
[2017-10-08] MEDS ORDERED: NAPROXEN 500 MG TAB PO PRN (12:00)
--- NOTE | 2017-10-08 17:22 | ECHRPT ---
Indication: CVA/TIA CONCLUSIONS Normal left ventricular size. Mild concentric left ventricular hypertrophy. The left ventricular systolic function is hyperdynamic with an estimated ejection fraction in the ra nge of 65- 70%. There is mild tricuspid valve regurgitation. The estimated pulmonary arterial pressure is 40.7 mmHg. BP: 130 / 68 HR: 81 Rhythm: Sinus MEASUREMENTS (Male / Female) Normal Values Technical Quality:Fair 2D ECHO LV Diastolic Diameter PLAX 4.8 cm 4.2 - 5.9 / 3.9 - 5.3 cm LV Systolic Diameter PLAX 3.3 cm IVS Diastolic Thickness 1.1 cm 0.6 - 1.0 / 0.6 - 0.9 cm LVPW Diastolic Thickness 1.1 cm 0.6 - 1.0 / 0.6 - 0.9 cm LV Relative Wall Thickness 0.5 RV Internal Dim ED PLAX 2.3 cm LVOT Diameter 2.2 cm Aortic Root Diameter 2.8 cm LA Systolic Diameter LX 3.3 cm 3.0 - 4.0 / 2.7 - 3.8 cm M-MODE AV Cusp Separation MM 1.6 cm DOPPLER AV Peak Velocity 163.0 cm/s AV Peak Gradient 10.6 mmHg AV Mean Gradient 5.0 mmHg AV Velocity Time Integral 33.7 cm LVOT Peak Velocity 90.2 cm/s LVOT Peak Gradient 3.3 mmHg LVOT Velocity Time Integral 17.1 cm AV Area Cont Eq vti 1.9 cm AV Area Cont Eq pk 2.1 cm Mitral E Point Velocity 89.8 cm/s Mitral A Point Velocity 102.0 cm/s Mitral E to A Ratio 0.9 LV E' Lateral Velocity 8.6 cm/s Mitral E to LV E' Lateral Ratio 10.5 LV E' Septal Velocity 6.0 cm/s Mitral E to LV E' Septal Ratio 14.9 TR Peak Velocity 277.0 cm/s TR Peak Gradient 30.7 mmHg Right Atrial Pressure 10.0 mmHg Pulmonary Artery Systolic Pressu 40.7 mmHg Right Ventricular Systolic Press 40.7 mmHg PV Peak Velocity 76.7 cm/s PV Peak Gradient 2.4 mmHg FINDINGS LEFT VENTRICLE Normal left ventricular size. Mild concentric left ventricular hypertrophy. The left ventricular systolic function is hyperdynamic with an estimated ejection fraction in the ra nge of 65- 70%. RIGHT VENTRICLE Normal right ventricular size and systolic function. LEFT ATRIUM The left atrial size is normal. RIGHT ATRIUM The right atrial size is normal. ATRIAL SEPTUM No atrial level shunt is demonstrated by color flow Doppler interrogation. AORTA The aortic root and proximal ascending aorta are normal in size on limited imaging. MITRAL VALVE Structurally normal mitral valve. No mitral valve stenosis or regurgitation. AORTIC VALVE Trileaflet aortic valve. No aortic valve stenosis or regurgitation. TRICUSPID VALVE There is mild tricuspid valve regurgitation. The estimated pulmonary arterial pressure is 40.7 mmHg. PULMONARY VALVE No pulmonary valve regurgitation or stenosis. VESSELS The inferior vena cava is normal in size. PERICARDIUM No pericardial effusion. Deepak Serrato MD, FACC, FSCAI (Electronically Signed) Final Date:08 Oct 2017 17:21
[2017-10-08 17:33] LABS: HEMOGLOBIN A1C 5.5 % (4.3-6.0)
--- NOTE | 2017-10-09 08:30 | EKG ---
Date Performed: 10/07/2017 Time Performed: 12:49:09 PTAGE: 67 years EKG: Sinus rhythm NORMAL ECG INTERPRETATION BASED ON A DEFAULT AGE OF 40 YEARS PREVIOUS TRACING : 09/04/2015 15.44 DOCTOR: Sophia Beckford Interpretating Date/Time 10/09/2017 08:19:26
== END 2017-10-08 13:15 | disposition home or self-care (01) ==
LOC: PHED 12:30 → PHEDA 16:54 → PH3A 18:54
PROVIDERS: ADMIT Hospitalist; ATTEND Hospitalist
DX: G45.9 Transient cerebral ischemic attack, unspecified (principal); R51 Headache; R07.9 Chest pain, unspecified; E78.5 Hyperlipidemia, unspecified; I10 Essential (primary) hypertension; E11.9 Type 2 diabetes mellitus without complications; F03.90 Unspecified dementia, unspecified severity, without behavioral disturbance, psychotic disturbance, mood disturbance, and anxiety; F31.9 Bipolar disorder, unspecified; K57.30 Diverticulosis of large intestine without perforation or abscess without bleeding; K76.0 Fatty (change of) liver, not elsewhere classified; M47.816 Spondylosis without myelopathy or radiculopathy, lumbar region; Z83.3 Family history of diabetes mellitus; Z82.49 Family history of ischemic heart disease and other diseases of the circulatory system; Z87.891 Personal history of nicotine dependence
CPT/HCPCS: 62270; 70450; 70544; 70548; 70551; 71045; 71275; 74174; 80048; 80061; 82550; 82945; 82948; 83036; 83605; 83690; 84157; 84484; 85025; 85384; 85610; 85730; 86850; 86900; 86901; 87070; 87205; 89051; 93005; 93306; 96361; 96374; 96375; 97162; 97165; 99291; A9579; G0378; G8987; G8988; G8989; J0131; J2060; J2270; J2765; J7030; Q9967